=== PATIENT | female | born 1970 | race Caucasian/White ===

== ENCOUNTER → 2016-11-08 | Outpatient (CLI) | payer MEDICARE, BC ==
--- NOTE | 2016-11-09 16:09 | EKG REPORT ---
SEVERITY:- NORMAL ECG - SINUS RHYTHM : Confirmed by: Mariaelena Nieves MD 09-Nov-2016 16:08:49
== END ==
LOC: OD 16:46
PROVIDERS: ATTEND Nurse Practitioner Family
DX: G89.29 Other chronic pain (principal); Z79.891 Long term (current) use of opiate analgesic
CPT/HCPCS: 93005; 93010

== ENCOUNTER → 2017-02-27 | Outpatient (CLI) | payer MEDICARE, BC ==
[2017-02-27 14:04] LABS: ABSOLUTE BASOPHILS # (AUTO) 0.1 10^3/uL (0.0-0.2); ABSOLUTE EOSINOPHILS # (AUTO) 0.2 10^3/uL (0.0-0.6); ABSOLUTE LYMPHOCYTES (AUTO) 2.2 10^3/uL (0.5-4.7); ABSOLUTE MONOCYTES (AUTO) 0.6 10^3/uL (0.1-1.4); ABSOLUTE NEUT (AUTO) 2.2 10^3/uL (1.7-8.2); HEMATOCRIT 36.8 % (36.0-47.0); HEMOGLOBIN 12.5 g/dL (12.0-15.5); HGB HCT DIFFERENCE 0.7; LYMPHOCYTES % (AUTO) 42.2 % (13-45); MEAN CORPUSCULAR HEMOGLOBIN 29.1 pg (27.0-33.4); MEAN CORPUSCULAR HGB CONC 34.1 g/dL (32.0-36.0); MEAN CORPUSCULAR VOLUME 86 fl (80-97); MONOCYTES % (AUTO) 10.8 % (3-13); RED CELL DISTRIBUTION WIDTH 13.7 % (11.5-14.0); WHITE BLOOD COUNT 5.3 10^3/uL (4.0-10.5)
[2017-02-27 14:26] LABS: ALANINE AMINOTRANSFERASE 28 U/L (9-52); ALBUMIN 3.8 g/dL (3.5-5.0); ALKALINE PHOSPHATASE 99 U/L (38-126); ANION GAP 9 (5-19); ASPARTATE AMINO TRANSFERASE 20 U/L (14-36); BILIRUBIN,DIRECT 0.5 mg/dL (0.0-0.4); BILIRUBIN,TOTAL 0.7 mg/dL (0.2-1.3); BLOOD UREA NITROGEN 7 mg/dL (7-20); CALCIUM 9.7 mg/dL (8.4-10.2); CARBON DIOXIDE 29 mmol/L (22-30); CHLORIDE 106 mmol/L (98-107); CHOLESTEROL 225.97 mg/dL (0-200); CREATININE RESULT 0.59 mg/dL (0.52-1.25); Direct HDL 43 mg/dL (>40); GLUCOSE 81 mg/dL (75-110); POTASSIUM 4.2 mmol/L (3.6-5.0); SODIUM 144.1 mmol/L (137-145); TRIGLYCERIDES 136 mg/dL (<150)
[2017-02-27 14:40] LABS: DIRECT LDL 170 mg/dL (<100)
== END ==
LOC: OD 12:50
PROVIDERS: ATTEND Family Medicine Geriatric Medicine
DX: I10 Essential (primary) hypertension (principal); E78.5 Hyperlipidemia, unspecified; Z79.899 Other long term (current) drug therapy; E34.3 Short stature due to endocrine disorder
CPT/HCPCS: 36415; 80053; 80061; 84443; 85025

== ENCOUNTER → 2017-08-30 | Outpatient (CLI) | payer MEDICARE, BC ==
[2017-08-30 12:52] LABS: ALANINE AMINOTRANSFERASE 33 U/L (9-52); ASPARTATE AMINO TRANSFERASE 82 U/L (14-36); CHOLESTEROL 238.15 mg/dL (0-200); TRIGLYCERIDES 115 mg/dL (<150)
[2017-08-30 13:03] LABS: DIRECT LDL 164 mg/dL (<100)
== END ==
LOC: OD 10:59
PROVIDERS: ATTEND Family Medicine Geriatric Medicine
DX: I10 Essential (primary) hypertension (principal); E78.5 Hyperlipidemia, unspecified; K21.9 Gastro-esophageal reflux disease without esophagitis; Z79.899 Other long term (current) drug therapy
CPT/HCPCS: 36415; 80061; 84450; 84460

== ENCOUNTER → 2018-05-02 | Outpatient (CLI) | payer MEDICARE, BC ==
--- NOTE | 2018-05-02 17:54 | EKG REPORT ---
SEVERITY:- OTHERWISE NORMAL ECG - SINUS RHYTHM LOW VOLTAGE IN FRONTAL LEADS : Confirmed by: Jose Luis Martínez 02-May-2018 17:53:46
== END ==
LOC: OD 13:40
PROVIDERS: ATTEND Nurse Practitioner Family
DX: Z51.81 Encounter for therapeutic drug level monitoring (principal); Z79.891 Long term (current) use of opiate analgesic
CPT/HCPCS: 93005; 93010

== ENCOUNTER → 2018-06-11 | Outpatient (CLI) | payer MEDICARE, BC ==
[2018-06-11 10:59] LABS: ALANINE AMINOTRANSFERASE 11 U/L (9-52); ALBUMIN 4.5 g/dL (3.5-5.0); ALKALINE PHOSPHATASE 106 U/L (38-126); ANION GAP 12 (5-19); ASPARTATE AMINO TRANSFERASE 30 U/L (14-36); BILIRUBIN,DIRECT 0.3 mg/dL (0.0-0.4); BILIRUBIN,TOTAL 0.8 mg/dL (0.2-1.3); BLOOD UREA NITROGEN 11 mg/dL (7-20); CALCIUM 9.9 mg/dL (8.4-10.2); CARBON DIOXIDE 28 mmol/L (22-30); CHLORIDE 102 mmol/L (98-107); CHOLESTEROL 240.08 mg/dL (0-200); GLUCOSE 105 mg/dL (75-110); POTASSIUM 4.5 mmol/L (3.6-5.0); SODIUM 141.8 mmol/L (137-145); TRIGLYCERIDES 105 mg/dL (<150)
[2018-06-11 11:11] LABS: DIRECT LDL 161 mg/dL (<100)
== END ==
LOC: OD 09:58
PROVIDERS: ATTEND Internal Medicine
DX: E78.5 Hyperlipidemia, unspecified (principal); R10.84 Generalized abdominal pain; E55.9 Vitamin D deficiency, unspecified
CPT/HCPCS: 36415; 80053; 80061; 82306; 84443

== ENCOUNTER → 2018-09-06 | Outpatient (CLI) | payer MEDICARE, BC ==
[2018-09-06 08:09] LABS: ABSOLUTE BASOPHILS # (AUTO) 0.1 10^3/uL (0.0-0.2); ABSOLUTE EOSINOPHILS # (AUTO) 0.1 10^3/uL (0.0-0.6); ABSOLUTE LYMPHOCYTES (AUTO) 1.5 10^3/uL (0.5-4.7); ABSOLUTE MONOCYTES (AUTO) 0.7 10^3/uL (0.1-1.4); ABSOLUTE NEUT (AUTO) 3.8 10^3/uL (1.7-8.2); BASOPHILS % (AUTO) 1.1 % (0-2); EOSINOPHILS % (AUTO) 1.7 % (0-6); HEMATOCRIT 36.5 % (36.0-47.0); HEMOGLOBIN 12.4 g/dL (12.0-15.5); MEAN CORPUSCULAR HEMOGLOBIN 29.3 pg (27.0-33.4); MEAN CORPUSCULAR HGB CONC 34.1 g/dL (32.0-36.0); MEAN CORPUSCULAR VOLUME 86 fl (80-97); MONOCYTES % (AUTO) 11.1 % (3-13); PLATELET COUNT 278 10^3/uL (150-450); RED BLOOD COUNT 4.25 10^6/uL (3.72-5.28); RED CELL DISTRIBUTION WIDTH 14.1 % (11.5-14.0); SEGMENTED NEUTROPHILS % (AUTO) 62.1 % (42-78); TOTAL CELLS COUNTED % (AUTO) 100 %; WHITE BLOOD COUNT 6.1 10^3/uL (4.0-10.5)
[2018-09-06 08:26] LABS: ALANINE AMINOTRANSFERASE 12 U/L (9-52); ALKALINE PHOSPHATASE 79 U/L (38-126); ANION GAP 9 (5-19); ASPARTATE AMINO TRANSFERASE 17 U/L (14-36); BILIRUBIN,DIRECT 0.2 mg/dL (0.0-0.4); BILIRUBIN,TOTAL 0.2 mg/dL (0.2-1.3); BLOOD UREA NITROGEN 11 mg/dL (7-20); CALCIUM 9.7 mg/dL (8.4-10.2); CARBON DIOXIDE 29 mmol/L (22-30); CHLORIDE 104 mmol/L (98-107); GLUCOSE 103 mg/dL (75-110); LIPASE 56.1 U/L (23-300); POTASSIUM 4.4 mmol/L (3.6-5.0); SODIUM 141.9 mmol/L (137-145); TOTAL PROTEIN 7.5 g/dL (6.3-8.2)
== END ==
LOC: OD 07:33
PROVIDERS: ATTEND Internal Medicine
DX: D64.9 Anemia, unspecified (principal); K85.90 Acute pancreatitis without necrosis or infection, unspecified; R10.9 Unspecified abdominal pain
CPT/HCPCS: 36415; 80053; 83690; 85025

== ENCOUNTER → 2018-09-19 | Outpatient (CLI) | payer BC, MEDICARE ==
--- NOTE | 2018-09-19 08:33 | RADIOLOGY REPORT (SQ) ---
EXAM DESCRIPTION: U/S ABDOMEN COMPLETE W/O DOP COMPLETED DATE/TIME: 09/19/2018 8:12 am REASON FOR STUDY: CHOLECYSTITIS (K81.9) K81.9 CHOLECYSTITIS, UNSPECIFIED COMPARISON: None. TECHNIQUE: Dynamic and static grayscale images acquired of the abdomen and recorded on PACS. Additio nal selected color Doppler and spectral images recorded. Note: Study does not meet criteria for complete doppler/duplex scan LIMITATIONS: Bowel gas obscures some structures. FINDINGS: PANCREAS: Not well visualized. LIVER: No masses. Echotexture normal. LIVER VASCULATURE: Normal directional flow of the main portal vein and hepatic veins. GALLBLADDER: Cholelithiasis. No secondary evidence of acute cholecystitis. ULTRASOUND-DETECTED GABRIEL'S SIGN: Negative. INTRAHEPATIC DUCTS AND COMMON DUCT: Dilation of the CBD measuring up to 1.1 cm. No obstructing lesio n identified. No significant intrahepatic ductal dilation. INFERIOR VENA CAVA: Normal flow. AORTA: Partially visualized. No aneurysm. RIGHT KIDNEY: Mild asymmetrically decreased in size measuring 7.5 cm. Normal echogenicity. No so lid or suspicious masses. No hydronephrosis. No calcifications. LEFT KIDNEY: Normal in size measuring 9.8 cm. Normal echogenicity. No solid or suspicious masses . No hydronephrosis. No calcifications. SPLEEN: Normal in size measuring 8.6 cm. No solid masses. PERITONEAL AND PLEURAL SPACES: No ascites or effusions. OTHER: No other significant finding. IMPRESSION: Cholelithiasis without secondary evidence of acute cholecystitis. Dilation of the CBD m easuring up to 1.1 cm. Findings possibly related to choledocholithiasis although no obstructing lesi on identified. Recommend correlation with LFTs. Further evaluation with MRCP or ERCP could be consi dered. TECHNICAL DOCUMENTATION: JOB ID: [id number] [employer]- All Rights Reserved Reading location - IP/workstation name: [email or web address]
== END ==
LOC: RAD 07:09
PROVIDERS: ATTEND Internal Medicine
DX: K80.10 Calculus of gallbladder with chronic cholecystitis without obstruction (principal)
CPT/HCPCS: 76700

== ENCOUNTER 2018-11-12 13:14 | Emergency (ER) | payer MEDICARE, OTHER ==
--- NOTE | 2018-11-12 14:20 | ER Document Report ---
ED Medical Screen (RME) - General Chief Complaint: Upper Abdominal Pain Stated Complaint: RIB PAIN Time Seen by Provider: 11/12/18 14:10 Primary Care Provider: RACHEL HATHAWAY MD [Primary Care Provider] - Follow up as needed TRAVEL OUTSIDE OF THE [place] IN LAST 30 DAYS: No - HPI Notes: 11/12/18 14:17 Patient is a 48-year-old female with a history of severe scoliosis, orthopedic surgeries, cholelithiasis, anxiety who presents complaining of left anterior lower rib/left upper quadrant abdominal pain is been present for the past few days. Patient says the pain is sharp and is worse when she pushes on it. Patient states that she has had gallbladder issues for the past month and had an ultrasound which showed gallstones. Patient was told that she needed to follow- up with a surgeon, but was unable to because her daughter recently gave . Patient states that the pain is not the exact same as when she was having gallbladder pain before. Patient states that the pain started when she was reaching on top of a counter for something and had her left anterior chest/abdomen on the corner of a counter. Denies MEYERS, fever, neck pain, URI, CP, SOB, dysuria, back pain, or rash. I have treated and performed a rapid initial assessment of this patient. A comprehensive ED assessment and evaluation of the patient, analysis of test results and completion of medical decision making process will be conducted by additional ED providers. PHYSICAL EXAMINATION: GENERAL: Well-appearing, well-nourished and in no acute distress. A&Ox4. Answers questions appropriately. LUNGS: Breath sounds clear to auscultation bilaterally and equal. No wheezes rales or rhonchi. HEART: Regular rate and rhythm without murmurs, rubs, gallops. ABDOMEN: Soft, nondistended abdomen. No guarding, no rebound. Normal bowel sounds present. No CVA tenderness bilaterally. + mild LUQ tenderness (cannot elicit thorough abd exam w/o bed, however). Chest: + tenderness LUQ abd and to palp lower anterior ribs to palp. - Related Data Allergies/Adverse Reactions: No Known Allergies Allergy (Verified 11/12/18 13:32) Past Medical History - Social History Chew tobacco use (# tins/day): No Frequency of alcohol use: None Drug Abuse: Marijuana - Past Medical History Cardiac Medical History: Reports: Hx Hypercholesterolemia Denies: Hx Coronary Artery Disease, Hx Heart Attack, Hx Hypertension Pulmonary Medical History: Denies: Hx Asthma, Hx Bronchitis, Hx COPD, Hx Pneumonia Neurological Medical History: Denies: Hx Cerebrovascular Accident, Hx Seizures Renal/ Medical History: Denies: Hx Peritoneal Dialysis Musculoskeltal Medical History: Reports Hx Arthritis Past Surgical History: Reports: Hx Orthopedic Surgery - multiple. Denies: Hx Hysterectomy, Hx Pacemaker - Immunizations Hx Diphtheria, Pertussis, Tetanus Vaccination: Yes Physical Exam - Vital signs Vitals: Temp Pulse Resp BP Pulse Ox 97.9 F 48 L 16 148/86 H 97 11/12/18 13:43 11/12/18 13:43 11/12/18 13:43 11/12/18 13:43 11/12/18 13:43 Course - Vital Signs Vital signs: Temp Pulse Resp BP Pulse Ox 97.9 F 48 L 16 148/86 H 97 11/12/18 13:43 11/12/18 13:43 11/12/18 13:43 11/12/18 13:43 11/12/18 13:43 Doctor's Discharge - Discharge Referrals: RACHEL HATHAWAY MD [Primary Care Provider] - Follow up as needed
[2018-11-12 15:09] LABS: ABSOLUTE BASOPHILS # (AUTO) 0.1 10^3/uL (0.0-0.2); ABSOLUTE EOSINOPHILS # (AUTO) 0.2 10^3/uL (0.0-0.6); ABSOLUTE LYMPHOCYTES (AUTO) 1.8 10^3/uL (0.5-4.7); ABSOLUTE MONOCYTES (AUTO) 0.5 10^3/uL (0.1-1.4); ABSOLUTE NEUT (AUTO) 2.9 10^3/uL (1.7-8.2); APPEARANCE,URINE SLIGHTLY-CLOUDY; BASOPHILS % (AUTO) 1.2 % (0-2); BILIRUBIN,URINE NEGATIVE (NEGATIVE); COLOR,URINE YELLOW; EOSINOPHILS % (AUTO) 4.2 % (0-6); GLUCOSE, URINE NEGATIVE (NEGATIVE); HEMATOCRIT 38.9 % (36.0-47.0); HEMOGLOBIN 12.9 g/dL (12.0-15.5); KETONES,URINE NEGATIVE (NEGATIVE); LEUKOCYTE ESTERASE,URINE TRACE (NEGATIVE); LYMPHOCYTES % (AUTO) 33.7 % (13-45); MEAN CORPUSCULAR HGB CONC 33.2 g/dL (32.0-36.0); MEAN CORPUSCULAR VOLUME 84 fl (80-97); MONOCYTES % (AUTO) 8.3 % (3-13); NITRITE,URINE NEGATIVE (NEGATIVE); PLATELET COUNT 295 10^3/uL (150-450); PROTEIN,URINE NEGATIVE (NEGATIVE); RED BLOOD COUNT 4.63 10^6/uL (3.72-5.28); RED CELL DISTRIBUTION WIDTH 14.1 % (11.5-14.0); SEGMENTED NEUTROPHILS % (AUTO) 52.6 % (42-78); TOTAL CELLS COUNTED % (AUTO) 100 %; URINE SPECIFIC GRAVITY 1.009; UROBILINOGEN,URINE NEGATIVE mg/dL (<2.0); WHITE BLOOD COUNT 5.5 10^3/uL (4.0-10.5)
--- NOTE | 2018-11-12 15:26 | RADIOLOGY REPORT (SQ) ---
EXAM DESCRIPTION: RIBS LEFT W/PA CHEST COMPLETED DATE/TIME: 11/12/2018 3:13 pm REASON FOR STUDY: left lower anterior rib/abd pain COMPARISON: None. TECHNIQUE: Frontal view of the chest and additional views of the left ribs acquired. NUMBER OF VIEWS: Three views LIMITATIONS: None. FINDINGS: FRONTAL CXR: Marked scoliosis. No pulmonary infiltrate or mass. No pleural effusion. RIBS: No displaced rib fractures. No lytic or blastic bony lesions. OTHER: No other significant finding. IMPRESSION: NO PNEUMOTHORAX. NO DISPLACED RIB FRACTURES. COMMENT: SITE OF TRAUMA/COMPLAINT MARKED/STAMP COMPLETED: No TECHNICAL DOCUMENTATION: JOB ID: [id number] [employer]- All Rights Reserved Reading location - IP/workstation name: [email or web address]
[2018-11-12 15:29] LABS: ALANINE AMINOTRANSFERASE 10 U/L (9-52); ALBUMIN 4.1 g/dL (3.5-5.0); ALKALINE PHOSPHATASE 90 U/L (38-126); ANION GAP 6 (5-19); ASPARTATE AMINO TRANSFERASE 20 U/L (14-36); BILIRUBIN,DIRECT 0.3 mg/dL (0.0-0.4); BILIRUBIN,TOTAL 0.3 mg/dL (0.2-1.3); BLOOD UREA NITROGEN 6 mg/dL (7-20); CALCIUM 9.5 mg/dL (8.4-10.2); CARBON DIOXIDE 32 mmol/L (22-30); CHLORIDE 103 mmol/L (98-107); GLUCOSE 86 mg/dL (75-110); POTASSIUM 3.5 mmol/L (3.6-5.0); TOTAL PROTEIN 7.6 g/dL (6.3-8.2)
--- NOTE | 2018-11-12 17:20 | ER Document Report ---
ED General - General Chief Complaint: Upper Abdominal Pain Stated Complaint: RIB PAIN Time Seen by Provider: 11/12/18 14:10 Primary Care Provider: RACHEL HATHAWAY MD [Primary Care Provider] - Follow up tomorrow Mode of Arrival: Ambulatory Information source: Patient Notes: This 48-year-old female presents emergency department with complaints of left lateral rib pain that started approximately 3 to 4 days ago. Patient reports last week she started having some epigastric pain. She went to see her primary care provider Dr. Etienne\Brady. They sent her for an ultrasound. She reports she was told she has gallstones cholelithiasis. Patient reports she was unable to follow-up with a surgeon because her daughter was having a baby. She reports that she bent [id number] and kind of rolled on her ribs last . She reports that her gallbladder pain is gone and now she is having severe left-sided rib pain. She denies fever vomiting diarrhea. Reports it hurts more when she coughs or takes a deep breath. Patient has severe scoliosis. Patient reports she has a very high pain tolerance and was on the couch crying today. She reports Dr. Etienne's office called and told her to come to the emergency department. TRAVEL OUTSIDE OF THE [place] IN LAST 30 DAYS: No - HPI Onset: Other Onset/Duration: Persistent Quality of pain: Achy Severity: Severe Pain Level: 5 Associated symptoms: None Exacerbated by: Coughing, Deep breathing Relieved by: Denies Similar symptoms previously: Yes Recently seen / treated by doctor: Yes - Related Data Allergies/Adverse Reactions: No Known Allergies Allergy (Verified 11/12/18 13:32) Past Medical History - General Information source: Patient - Social History Smoking Status: Current Every Day Smoker Chew tobacco use (# tins/day): No Frequency of alcohol use: None Drug Abuse: Marijuana Lives with: Family Family History: Reviewed & Not Pertinent Patient has suicidal ideation: No Patient has homicidal ideation: No - Past Medical History Cardiac Medical History: Reports: Hx Heart Attack - 2015, Hx Hypercholesterolemia Denies: Hx Coronary Artery Disease, Hx Hypertension Pulmonary Medical History: Denies: Hx Asthma, Hx Bronchitis, Hx COPD, Hx Pneumonia Neurological Medical History: Denies: Hx Cerebrovascular Accident, Hx Seizures Renal/ Medical History: Denies: Hx Peritoneal Dialysis Musculoskeletal Medical History: Reports Hx Arthritis, Reports Other - scoliosis Past Surgical History: Reports: Hx Orthopedic Surgery - multiple. Denies: Hx Hysterectomy, Hx Pacemaker - Immunizations Hx Diphtheria, Pertussis, Tetanus Vaccination: Yes Review of Systems - Review of Systems Notes: Review HPI for review of systems., All other systems negative Physical Exam - Vital signs Vitals: Temp Pulse Resp BP Pulse Ox 97.9 F 48 L 16 148/86 H 97 11/12/18 13:43 11/12/18 13:43 11/12/18 13:43 11/12/18 13:43 11/12/18 13:43 - General General appearance: Appears well, Alert In distress: None - HEENT Head: Normocephalic Eyes: Normal Conjunctiva: Normal Extraocular movements intact: Yes Neck: Normal, Supple. No: Anterior cervical chain, Lymphadenopathy - Respiratory Respiratory status: No respiratory distress Chest status: Nontender Breath sounds: Normal Chest palpation: Tender - left lateral rib area ttp, no ecchymoisis, no erythema - Cardiovascular Rhythm: Regular Heart sounds: Normal auscultation Murmur: No - Abdominal Inspection: Normal Distension: No distension Bowel sounds: Normal Tenderness: Nontender Adult front & back diagram: 1 - area ttp, no erythema, no ecchymosis - Extremities General upper extremity: Normal ROM General lower extremity: Normal ROM - Neurological Neuro grossly intact: Yes Cognition: Normal Orientation: AAOx4 [place] Coma Scale Eye Opening: Spontaneous [place] Coma Scale Verbal: Oriented [place] Coma Scale Motor: Obeys Commands [place] Coma Scale Total: 15 Speech: Normal - Psychological Associated symptoms: Normal affect, Normal mood - Skin Skin Temperature: Warm Skin Moisture: Dry Skin Color: Normal Course - Re-evaluation Re-evalutation: 11/12/18 17:26 This 48-year-old female presents with left-sided rib pain. Was evaluated for gallbladder issues last week and told she had gallstones. Today labs are unremarkable chest x-ray was negative. Pt c/o rib pain with minimal palpation, CT ordered. 11/12/18 14:56 11/12/18 14:56 MCV 84 fl (80-97) 11/12/18 14:56 MCH 28.0 pg (27.0-33.4) 11/12/18 14:56 MCHC 33.2 g/dL (32.0-36.0) 11/12/18 14:56 RDW 14.1 % (11.5-14.0) H 11/12/18 14:56 Seg Neutrophils % 52.6 % (42-78) 11/12/18 14:56 Lymphocytes % 33.7 % (13-45) 11/12/18 14:56 Monocytes % 8.3 % (3-13) 11/12/18 14:56 Eosinophils % 4.2 % (0-6) 11/12/18 14:56 Basophils % 1.2 % (0-2) 11/12/18 14:56 Absolute Neutrophils 2.9 10^3/uL (1.7-8.2) 11/12/18 14:56 Absolute Lymphocytes 1.8 10^3/uL (0.5-4.7) 11/12/18 14:56 Absolute Monocytes 0.5 10^3/uL (0.1-1.4) 11/12/18 14:56 Absolute Eosinophils 0.2 10^3/uL (0.0-0.6) 11/12/18 14:56 Absolute Basophils 0.1 10^3/uL (0.0-0.2) 11/12/18 14:56 Chloride 103 mmol/L (98-107) 11/12/18 14:56 Carbon Dioxide 32 mmol/L (22-30) H 11/12/18 14:56 Anion Gap 6 (5-19) 11/12/18 14:56 Est GFR ( Amer) > 60 (>60) 11/12/18 14:56 Est GFR (Non-Af Amer) > 60 (>60) 11/12/18 14:56 Glucose 86 mg/dL (75-110) 11/12/18 14:56 Calcium 9.5 mg/dL (8.4-10.2) 11/12/18 14:56 Total Bilirubin 0.3 mg/dL (0.2-1.3) 11/12/18 14:56 AST 20 U/L (14-36) 11/12/18 14:56 ALT 10 U/L (9-52) 11/12/18 14:56 Alkaline Phosphatase 90 U/L (38-126) 11/12/18 14:56 Total Protein 7.6 g/dL (6.3-8.2) 11/12/18 14:56 Albumin 4.1 g/dL (3.5-5.0) 11/12/18 14:56 Lipase 32.2 U/L (23-300) 11/12/18 14:56 Urine Color YELLOW 11/12/18 14:56 Urine Appearance SLIGHTLY-CLOUDY 11/12/18 14:56 Urine pH 7.0 (5.0-9.0) 11/12/18 14:56 Ur Specific [place] 1.009 11/12/18 14:56 Urine Protein NEGATIVE mg/dL (NEGATIVE) 11/12/18 14:56 Urine Glucose (UA) NEGATIVE mg/dL (NEGATIVE) 11/12/18 14:56 Urine Ketones NEGATIVE mg/dL (NEGATIVE) 11/12/18 14:56 Urine Blood NEGATIVE (NEGATIVE) 11/12/18 14:56 Urine Nitrite NEGATIVE (NEGATIVE) 11/12/18 14:56 Ur Leukocyte Esterase TRACE (NEGATIVE) H 11/12/18 14:56 Urine WBC (Auto) 1 /HPF 11/12/18 14:56 Urine RBC (Auto) 1 /HPF 11/12/18 14:56 Ribs w/Chest X-Ray 11/12/18 14:17 IMPRESSION: NO PNEUMOTHORAX. NO DISPLACED RIB FRACTURES. Chest CT 11/12/18 17:18 IMPRESSION: No acute findings. Labs unremarkable CT negative for acute injury pneumonia refracture. Patient instructed on all results. Patient instructed on Motrin for the pain follow-up with Dr. Hathaway tomorrow. She verbalized understanding to all instructions. 11/12/18 19:39 - Vital Signs Vital signs: Temp Pulse Resp BP Pulse Ox 98.0 F 52 L 16 128/81 H 99 11/12/18 18:37 11/12/18 18:37 11/12/18 13:43 11/12/18 18:37 11/12/18 18:37 - Laboratory Result Diagrams: 11/12/18 14:56 11/12/18 14:56 Laboratory results interpreted by me: 11/12/18 11/12/18 11/12/18 14:56 14:56 14:56 RDW 14.1 H Potassium 3.5 L Carbon Dioxide 32 H BUN 6 L Ur Leukocyte Esterase TRACE H - Diagnostic Test Radiology reviewed: Image reviewed, Reports reviewed Discharge - Discharge Clinical Impression: Rib pain on left side Condition: Stable Disposition: HOME, SELF-CARE Instructions: Anti-Inflammatory Medication ([facility]), Rib Contusion ([facility]) Additional Instructions: *You have been evaluated for left sided rib pain *Take ibuprofen as indicated *Cough, deep breathe frequently *Follow up with Dr Hathaway tomorrow *Return to ED for worsening condition, changes, needs *Return to ED if not better in 24 hours Referrals: RACHEL HATHAWAY MD [Primary Care Provider] - Follow up tomorrow
--- NOTE | 2018-11-12 19:03 | RADIOLOGY REPORT (SQ) ---
EXAM DESCRIPTION: CT CHEST WITHOUT COMPLETED DATE/TIME: 11/12/2018 5:59 pm REASON FOR STUDY: left side rib pain COMPARISON: None. TECHNIQUE: CT scan performed of the chest without intravenous contrast. Images reviewed with lung, soft tissue and bone windows. Reconstructed coronal and sagittal MPR images reviewed. All images st ored on PACS. All CT scanners at this facility use dose modulation, iterative reconstruction, and/or weight based d osing when appropriate to reduce radiation dose to as low as reasonably achievable (ALARA). [facility]: Dose Right [facility]: CareDose [facility]: Dose Right [facility]: Teradose 4D [facility]: [employer] RADIATION DOSE: CT Rad equipment meets quality standard of care and radiation dose reduction techniq ues were employed. CTDIvol: 5.0 mGy. DLP: 186 mGy-cm. mGy. LIMITATIONS: No technical limitations. FINDINGS: LUNGS AND PLEURA: No masses, infiltrates, or pneumothorax. No pleural effusions or pleura l calcifications. HILAR AND MEDIASTINAL STRUCTURES: 4.5 cm hiatus hernia. No abnormal nodes. No obvious aneurysm. HEART AND VASCULAR STRUCTURES: No aneurysm. No pericardial effusion. UPPER ABDOMEN: No significant findings. Limited exam. THYROID AND OTHER SOFT TISSUES: 1.5 cm calcified left thyroid nodule. No adenopathy. BONES: Severe thoracic rotoscoliosis. No acute finding. HARDWARE: None in the chest. OTHER: No other significant findings. IMPRESSION: No acute findings. TECHNICAL DOCUMENTATION: JOB ID: [id number] Quality ID # [id number]: Final reports with documentation of one or more dose reduction techniques (e.g., Au tomated exposure control, adjustment of the mA and/or kV according to patient size, use of iterative reconstruction technique) 2010 [employer]- All Rights Reserved Reading location - IP/workstation name: [email or web address]
[2018-11-12] MEDS ORDERED: IBUPROFEN 800 MG TABLET PO ONE (19:24)
[2018-11-12 20:15] VITALS: BP 138/86
== END 2018-11-12 19:45 | disposition home or self-care (01) ==
LOC: ER 13:14
DX: R07.81 Pleurodynia (principal); F17.200 Nicotine dependence, unspecified, uncomplicated; F12.10 Cannabis abuse, uncomplicated
CPT/HCPCS: 99284; 36415; 83690; 85025; 80053; 81001; 71101; 71250; A9270

== ENCOUNTER → 2019-06-04 | Outpatient (CLI) | payer MEDICARE, OTHER ==
[2019-06-04 17:42] LABS: ABSOLUTE BASOPHILS # (AUTO) 0.1 10^3/uL (0.0-0.2); ABSOLUTE EOSINOPHILS # (AUTO) 0.3 10^3/uL (0.0-0.6); ABSOLUTE LYMPHOCYTES (AUTO) 1.7 10^3/uL (0.5-4.7); ABSOLUTE MONOCYTES (AUTO) 0.8 10^3/uL (0.1-1.4); ABSOLUTE NEUT (AUTO) 4.2 10^3/uL (1.7-8.2); BASOPHILS % (AUTO) 0.8 % (0-2); EOSINOPHILS % (AUTO) 4.1 % (0-6); HEMATOCRIT 27.3 % (36.0-47.0); HEMOGLOBIN 9.2 g/dL (12.0-15.5); LYMPHOCYTES % (AUTO) 24.1 % (13-45); MEAN CORPUSCULAR HEMOGLOBIN 26.4 pg (27.0-33.4); MEAN CORPUSCULAR HGB CONC 33.7 g/dL (32.0-36.0); MEAN CORPUSCULAR VOLUME 78 fl (80-97); MONOCYTES % (AUTO) 11.7 % (3-13); PLATELET COUNT 410 10^3/uL (150-450); RED BLOOD COUNT 3.49 10^6/uL (3.72-5.28); RED CELL DISTRIBUTION WIDTH 17.1 % (11.5-14.0); SEGMENTED NEUTROPHILS % (AUTO) 59.3 % (42-78); TOTAL CELLS COUNTED % (AUTO) 100 %
[2019-06-04 18:02] LABS: IRON(TIBC) 44.8 ug/dL (37-170)
== END ==
LOC: OD 16:25
PROVIDERS: ATTEND Family Medicine
DX: N30.00 Acute cystitis without hematuria (principal); D50.9 Iron deficiency anemia, unspecified; Z92.89 Personal history of other medical treatment
CPT/HCPCS: 36415; 82728; 83540; 83550; 85025; 87086